=== PATIENT | male | born 1960 | race Hispanic/Latino ===

== ENCOUNTER 2022-03-08 08:33 | Outpatient (CLI) | payer OTHER | END 2022-03-08 08:34 | disposition home or self-care (01) | LOC: SCSMRI 08:33 | PROVIDERS: ATTEND Neurological Surgery | DX: M47.26 Other spondylosis with radiculopathy, lumbar region (principal) | CPT/HCPCS: 72148 ==

== ENCOUNTER 2022-04-20 05:40 | Day surgery (SDC) | payer OTHER ==
[2022-04-19 12:16] VITALS: BMI 28.3
[2022-04-20] MEDS ORDERED: Lidocaine 1% (PF) 30 ML VIAL ONE (06:25)
[2022-04-20] MEDS ORDERED: EPINEPHrine 1 MG/ML AMP ONE (06:25)
[2022-04-20] MEDS ORDERED: Ketorolac Tromethamine 30 MG/ML VIAL ONE (06:33)
[2022-04-20] MEDS ORDERED: Clindamycin/D5W 900 mg/50 ml Premix Bag ONE (06:45)
[2022-04-20] MEDS ORDERED: fentaNYL PF 100 MCG/2 ML SYRINGE ONE (06:48)
[2022-04-20] MEDS ORDERED: Propofol 1,000 MG/100 ML VIAL IV ONE (06:48)
[2022-04-20] MEDS ORDERED: Midazolam HCl 2 mg/2 ml Vial ONE (06:48)
[2022-04-20] MEDS ORDERED: Levofloxacin 500 mg/D5W 100 ml Premix Bag ONE (06:48)
== END 2022-04-20 09:00 | disposition home or self-care (01) ==
LOC: SDC 05:40
PROVIDERS: ATTEND Neurological Surgery
PROC: 01N50ZZ Release Median Nerve, Open Approach (ICD-10-PCS; principal; 2022-04-20)
DX: G56.02 Carpal tunnel syndrome, left upper limb (principal); G89.4 Chronic pain syndrome; F17.210 Nicotine dependence, cigarettes, uncomplicated; M19.90 Unspecified osteoarthritis, unspecified site; M47.816 Spondylosis without myelopathy or radiculopathy, lumbar region; Z79.899 Other long term (current) drug therapy; Z88.0 Allergy status to penicillin
CPT/HCPCS: J0171; J1885; J1956; J2001; J2250; J2704; J3490